=== PATIENT | male | born 1985 ===

== ENCOUNTER 2017-07-27 23:54 | Emergency (ER) | payer SELFPAY ==
[~2017-07-27] VITALS: Ht 185.4 cm; Wt 100.0 kg
[2017-07-28] MEDS ORDERED: SODIUM CHLORIDE 0.9% 1,000 ML IV ONE (00:06)
[2017-07-28 00:30] LABS: BASOPHILS # (AUTO) 0.01 x10^3/uL (0-0.1); BASOPHILS % (AUTO) 0 % (0-1); EOSINOPHILS # (AUTO) 0.21 x10^3/uL (0-0.4); EOSINOPHILS % (AUTO) 3 % (1-7); LYMPHOCYTES # (AUTO) 2.09 x10^3/uL (1-3.4); LYMPHOCYTES % (AUTO) 32 % (22-44); MD NO; MEAN CORPUSCULAR HEMOGLOBIN 32.1 pg (27.5-34.5); MEAN CORPUSCULAR HGB CONC 34.5 g/dL (33.2-36.2); MEAN CORPUSCULAR VOLUME 92.8 fL (81-97); MEAN PLATELET VOLUME 9.3 fL (7.4-10.4); MONOCYTES # (AUTO) 0.45 x10^3/uL (0.2-0.8); MONOCYTES % (AUTO) 7 % (2-9); NEUTROPHILS # (AUTO) 3.72 x10^3/uL (1.8-6.8); NEUTROPHILS % (AUTO) 57 % (42-75); PLATELET COUNT 302 x10^3/uL (130-400); RED CELL DISTRIBUTION WIDTH 12.7 % (9.4-14.8)
[2017-07-28] MEDS ORDERED: SODIUM CHLORIDE 0.9% 1,000ML IVBOLUS ONE ×2 (00:30→03:00)
[2017-07-28 00:41] LABS: ALANINE AMINOTRANSFERASE 42 U/L (12-78); ALBUMIN 4.2 g/dL (3.4-5.0); ANION GAP 10 mmol/L (5-15); CALCIUM 9.1 mg/dL (8.5-10.1); CHLORIDE 112 mmol/L (98-107); CREATININE 1.06 mg/dL (0.7-1.3)
[2017-07-28 00:43] LABS: ALKALINE PHOSPHATASE 93 U/L (45-117); BILIRUBIN,TOTAL 0.4 mg/dL (0.2-1.0); TOTAL PROTEIN 7.8 g/dL (6.4-8.2)
[2017-07-28 00:48] LABS: ACETAMINOPHEN < 2 mcg/mL (10-30)
[2017-07-28] MEDS ORDERED: ZIPRASIDONE 20 MG INJ IM ONE ×2 (00:54→01:00)
[2017-07-28] MEDS ORDERED: KETAMINE 50 MG/ML, 10ML ONE (01:16)
[2017-07-28 01:23] LABS: AMPHETAMINE SCREEN, URINE Negative (Negative); BARBITURATE SCREEN, URINE Negative (Negative); BENZODIAZEPINE SCREEN, URINE Positive (Negative); CANNABINOID SCREEN, URINE Positive (Negative); COCAINE SCREEN, URINE Negative (Negative); METHADONE SCREEN, URINE Negative (Negative); OPIATE SCREEN, URINE Negative (Negative)
[2017-07-28] MEDS ORDERED: KETAMINE 50 MG/ML, 10ML IM ONE (01:30)
[2017-07-28 03:46] VITALS: BP 132/82
== END 2017-07-28 ==
LOC: ED 07-28 06:50
DX: F15.151 Other stimulant abuse with stimulant-induced psychotic disorder with hallucinations (principal); F15.150 Other stimulant abuse with stimulant-induced psychotic disorder with delusions; F10.10 Alcohol abuse, uncomplicated; Z72.89 Other problems related to lifestyle; Z91.14 Patient's other noncompliance with medication regimen; Z60.9 Problem related to social environment, unspecified
CPT/HCPCS: 36415; 70450; 80053; 80307; 80329; 85025; 93005; 96372; 99285; J3486; J7030; G0480